=== PATIENT | female | born 1980 | race Caucasian/White ===

== ENCOUNTER 2018-08-17 08:46 | Emergency (ER) | payer SELFPAY ==
[2018-08-17 08:58] VITALS: BP 129/89; O2SAT 97
[2018-08-17] MEDS ORDERED: predniSONE 20 MG TAB PO ONE (09:09)
[2018-08-17] MEDS ORDERED: KETOROLAC TROMETHAMINE INJ 30 MG/ML VIAL IM ONE (09:09)
[2018-08-17] MEDS ORDERED: diazePAM 5 MG TAB PO ONE (09:09)
--- NOTE | 2018-08-17 09:12 | ED.PDOC ---
History of Present Illness - General Chief Complaint: Neck Injury/Pain Stated Complaint: neck and shoulder pain Time Seen by Provider: 08/17/18 08:48 Source: patient Exam Limitations: no limitations - History of Present Illness Initial Comments: the patient is a 38-year-old female presenting to the emergency room this morning secondary to essentially what is a crick in the neck. The patient woke up with symptoms of muscle spasm to the right posterior neck extending up to the scalp and down to the shoulder. She has tenderness to palpation adjacent to the cervical spine to the right of C3-C5 with obvious palpable muscle spasm. The muscle spasm is giving her a headache. She has had a little bit of tingling of the right arm as well. There is no pain on the left. No trauma. No pain over the spinous processes. No step-off. No altered mental status. No fever. No sore throat and runny nose cough or congestion. No meningeal signs. Timing/Duration: 4-6 hours Severity: moderate Improving Factors: nothing Worsening Factors: movement Associated Symptoms: denies symptoms Allergies/Adverse Reactions: Allergies NO KNOWN ALLERGY Allergy (Verified 08/17/18 08:56) Home Medications: Ambulatory Orders Cyclobenzaprine HCl [Flexeril] 10 mg PO TID PRN #20 tab 08/17/18 predniSONE [Prednisone] 20 mg PO DAILY #5 tab 08/17/18 Review of Systems - Review of Systems Constitutional: States: no symptoms reported EENTM: States: no symptoms reported Respiratory: States: no symptoms reported Cardiology: States: no symptoms reported Gastrointestinal/Abdominal: States: no symptoms reported, vomiting - 1 due to the headache Genitourinary: States: no symptoms reported Musculoskeletal: States: neck pain Skin: States: no symptoms reported Neurological: States: see HPI Endocrine: States: no symptoms reported Hematologic/Lymphatic: States: no symptoms reported All other Systems: No Change from Baseline Past Medical History (General) - Patient Medical History Hx Seizures: No Hx Stroke: No Hx Dementia: No Hx Asthma: No Hx of COPD: No Hx Cardiac Disorders: No Hx Congestive Heart Failure: No Hx Pacemaker: No Hx Hypertension: No Hx Thyroid Disease: No Hx Diabetes: No Hx Gastroesophageal Reflux: No Hx Renal Disease: No Hx of HIV: No Hx MRSA: No - Vaccination History Hx Influenza Vaccination: No - Social History Hx Tobacco Use: Yes - Female History Patient : No - Triage Comment ED Triage Comment: Patient states that she woke up with a knot in her neck and in her right shoulder area c/o neck pain and pain that radiates down the right arm. Family Medical History - Family History Mother Family History: No Known Living Status: Still Living Physical Exam - Physical Exam General Appearance: Alert, No apparent distress Eye Exam: bilateral normal Ears, Nose, Throat: hearing grossly normal, normal ENT inspection Neck: other - see history of present illness. No significant lymphadenopathy. No tenderness to palpation of the thyroid. No crepitus or bruising. Trachea is midline. 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 The patient woke up with these symptoms. No evidence of any infection and no recent trauma. She needs to keep herself well-hydrated. She needs to do stretching exercises to help reduce muscle spasms as has been demonstrated. The patient was given a dose of a steroid, and anti-inflammatory and muscle relaxer. She will likely be sleepy for the next 3-4 hours due to the muscle relaxer. She will be written for 5 days of oral prednisone as well as 5 days of some Flexeril to be used as a muscle relaxer. Topical heat can be used in the form of a heat pad or icy hot or Biofreeze. A chiropractor visit may prove beneficial for her. [id number]-mxmthqw anti-inflammatory such as Aleve 400 mg twice daily with food may also be beneficial. ER warnings were given. Keep routine follow-up with primary care doctor. Departure - Departure Clinical Impression: Cervical paraspinous muscle spasm Disposition: Discharge to Home or Self Care Condition: Fair Departure Forms: ED Discharge - Pt. Copy, Patient Portal Self Enrollment Instructions: DI for Cervical Muscle Strain Diet: regular diet Activity: increase activity as tolerated Prescriptions: Cyclobenzaprine HCl [Flexeril] 10 mg PO TID PRN #20 tab PRN Reason: Muscle Spasms predniSONE [Prednisone] 20 mg PO DAILY #5 tab Home Medications: Ambulatory Orders Cyclobenzaprine HCl [Flexeril] 10 mg PO TID PRN #20 tab 08/17/18 predniSONE [Prednisone] 20 mg PO DAILY #5 tab 08/17/18 Additional Instructions: the patient's 38-year-old female presenting to the emergency room secondary to muscle spasm of the paracervical spinal muscles adjacent to C3-C5 on the right. The patient woke up with these symptoms. No evidence of any infection and no recent trauma. She needs to keep herself well-hydrated. She needs to do stretching exercises to help reduce muscle spasms as has been demonstrated. The patient was given a dose of a steroid, and anti-inflammatory and muscle relaxer. She will likely be sleepy for the next 3-4 hours due to the muscle relaxer. She will be written for 5 days of oral prednisone as well as 5 days of some Flexeril to be used as a muscle relaxer. Topical heat can be used in the form of a heat pad or icy hot or Biofreeze. A chiropractor visit may prove beneficial for her. Cqkr-fxz-vxkxcma anti-inflammatory such as Aleve 400 mg twice daily with food may also be beneficial. ER warnings were given. Keep routine follow-up with primary care doctor.
== END 2018-08-17 09:35 | disposition home or self-care (01) ==
LOC: ER 08:46
DX: M62.838 Other muscle spasm (principal); R51 Headache; R11.10 Vomiting, unspecified
CPT/HCPCS: J1885; J7512